=== PATIENT | female | born 1955 | race Caucasian/White ===

== ENCOUNTER 2025-05-29 00:43 | Emergency (ER) | payer MEDICARE, BC ==
[~2025-05-29] VITALS: Ht 157.5 cm; Wt 72.6 kg
[~2025-05-29 00:43] MED LIST: SIMV-46
[2025-05-29] MEDS ORDERED: MORPHINE SULFATE 2 MG/1 ML DISP.SYRIN ONE (01:03)
[2025-05-29] MEDS ORDERED: ONDANSETRON 4 MG/2 ML VIAL ONE (01:03)
[2025-05-29] MEDS ORDERED: ASPIRIN 325 MG TABLET ONE (01:03)
[2025-05-29 01:09] LABS: PLATELET COUNT (AUTO) 214 K/uL (179-408); RED BLOOD CELL COUNT(AUTO) 4.26 MIL/uL (3.63-4.92); RED CELL DISTRIBUTION WIDTH 13.1 % (12.3-17.7); WHITE BLOOD COUNT (AUTO) 7.3 K/uL (3.8-11.8)
[2025-05-29] MEDS: ONDANSETRON 4 MG/2 ML VIAL IV ONE (01:10)
[2025-05-29] MEDS: MORPHINE SULFATE 2 MG/1 ML DISP.SYRIN IV ONE (01:10)
[2025-05-29] MEDS: ASPIRIN 325 MG TABLET PO ONE (01:10)
[2025-05-29 01:24] LABS: CREATININE 1.0 mg/dL (0.6-1.3); SODIUM SERUM 142.0 mmol/L (136-145); UREA NITROGEN, BLOOD 20.0 mg/dL (7-18)
[2025-05-29 01:30] LABS: ASPARTATE AMINOTRANSFERASE 18.0 U/L (15-37); TOTAL PROTEIN, SERUM 7.6 g/dL (6.4-8.2)
[2025-05-29 03:09] LABS: *BILIRUBIN,URIN NEGATIVE (NEGATIVE); *CLARITY,URINE CLEAR (CLEAR); *COLOR,URINE YELLOW (YELLOW); *KETONES,URINE NEGATIVE (NEGATIVE); *PROTEIN,URINE NEGATIVE (NEGATIVE); *UROBILINOGEN,URINE 0.2 E.U./dl (NORMAL); LEUKOCYTE ESTERASE ,URINE 1+ (NEGATIVE); NITRITE, URINE NEGATIVE (NEGATIVE); UGLUCOSE NEGATIVE (NEGATIVE)
[2025-05-29 03:11] LABS: *BLOOD, URINE TRACE (NEGATIVE); SQUAMOUS EPITHELIAL CELL,UR FEW /HPF (NONE SEEN)
[2025-05-29 06:06] VITALS: BP 103/46; O2SAT 96
== END 2025-05-29 06:09 | disposition home or self-care (01) ==
LOC: ER 00:55
DX: R06.02 Shortness of breath (principal); R07.2 Precordial pain; Z86.79 Personal history of other diseases of the circulatory system; Z60.2 Problems related to living alone
CPT/HCPCS: 99285; 96374; 71045; 96375; 80053; 81001; 83880; 85025; 85379; 87186 ×2; 87086; 87077; 84484 ×2; 36415; 93005; J2405; J2270; A4606; A4663